=== PATIENT | female | born 1950 | race Caucasian/White ===

== ENCOUNTER 2018-02-22 13:48 | Outpatient (CLI) | payer MEDICARE, MEDICAID | END 2018-02-22 13:49 | disposition home or self-care (01) | LOC: BICMAMMO 13:48 | PROVIDERS: ATTEND Specialist | DX: Z12.31 Encounter for screening mammogram for malignant neoplasm of breast (principal); Z80.3 Family history of malignant neoplasm of breast | CPT/HCPCS: 77063; 77067 ==

== ENCOUNTER 2019-02-23 13:46 | Outpatient (CLI) | payer MEDICARE, MEDICAID ==
--- NOTE | 2019-02-23 15:24 | MMO ---
Bilateral MAMMO Bilat Screen [facility]. CLINICAL HISTORY: Patient is 68 years old and is seen for screening. The patient has no family history of breast cancer. The patient has no personal history of cancer. VIEWS: The views performed were: bilateral craniocaudal with tomosynthesis and bilateral mediolateral oblique with tomosynthesis. FILMS COMPARED: The present examination has been compared to prior imaging studies performed at [facility] on 02/03/2017 and 02/22/2018, and at [facility] on 01/17/2012, 08/31/2012 and 01/25/2013. MAMMOGRAM FINDINGS: There are scattered fibroglandular densities. There are stable benign appearing calcifications seen in both breasts. There are no suspicious masses, suspicious calcifications, or new areas of architectural distortion. IMPRESSION: THERE IS NO MAMMOGRAPHIC EVIDENCE OF MALIGNANCY. A ROUTINE FOLLOW-UP MAMMOGRAM IN 1 YEAR IS RECOMMENDED. THE RESULTS OF THIS EXAM WERE SENT TO THE PATIENT. ACR BI-RADS Category 2 - Benign finding MAMMOGRAPHY NOTE: 1. A negative mammogram report should not delay a biopsy if a dominant of clinically suspicious mass is present. 2. Approximately 10% to 15% of breast cancers are not detected by mammography. 3. Adenosis and dense breasts may obscure an underlying neoplasm.
== END 2019-02-23 13:47 | disposition home or self-care (01) ==
LOC: BICMAMMO 13:46
PROVIDERS: ATTEND Specialist
DX: Z12.31 Encounter for screening mammogram for malignant neoplasm of breast (principal)
CPT/HCPCS: 77063; 77067

== ENCOUNTER 2019-04-13 07:26 | Day surgery (SDC) | payer MEDICARE, MEDICAID ==
[2019-04-12 12:57] VITALS: BMI 47.9
[2019-04-13] MEDS ORDERED: PROPOFOL 200 MG/20 ML VIAL ONE (10:05)
[2019-04-13] MEDS ORDERED: Lidocaine 1% PF 5 ML VIAL ONE (10:05)
--- NOTE | 2019-04-13 12:36 | OP ---
DATE OF PROCEDURE: 04/13/2019 PROCEDURES PERFORMED: Colonoscopy with snare polypectomy and biopsy. PREOPERATIVE DIAGNOSIS: History of adenomatous colon polyps. DESCRIPTION OF PROCEDURE: Informed consent was obtained from the patient. She was sedated with total intravenous anesthesia. The rectal exam revealed external hemorrhoids/skin tags. These were left alone. The colonoscope was advanced to the cecum, where the ileocecal valve and appendiceal orifice were clearly identified. The preparation quality was excellent. The scope was passed with difficulty through the proximal, transverse, ascending, and cecum due to looping in the left side of the colon. Transverse pressure helped to advance the scope. Three polyps were removed from the cecum by cold biopsy forceps measuring 2 to 3 mm each. A 4-mm polyp was removed from the cecum by cold snare polypectomy. There was a 9-mm flat polyp on the ileocecal valve. The entire polyp was difficult to completely visualize as the polyp wrapped around to the proximal side of the valve opening. The polyp was removed with snare cautery polypectomy. The proximal edges of the polypectomy site were cauterized with argon plasma coagulation. A 10-mm elongated polyp was removed from the ascending colon by snare cautery polypectomy. A 6-mm polyp was removed by snare cautery polypectomy from the ascending colon. A 4-mm polyp was removed by cold snare polypectomy from the ascending colon. A 4-mm polyp was removed from the transverse colon by cold snare polypectomy. The remainder of the colonic mucosa was normal including retroflexed views in the rectum. IMPRESSION: 1. Three cecum polyps measuring 2-mm to 3-mm. These were removed by cold biopsy forceps. A 4-mm polyp was also removed from the cecum by cold snare polypectomy. 2. A 9- to 10-mm polyp was removed from the ileocecal valve. This was a flat polyp and removed by snare cautery polypectomy. The proximal margin was cauterized with argon plasma coagulation. 3. There were 3 polyps removed from the ascending colon. Two polyps measuring 6-mm and 10-mm were removed by hot snare. One measuring 4-mm was removed by cold snare. 4. A 4-mm polyp was removed from the transverse colon by cold snare polypectomy. 5. Otherwise normal colonoscopy with excellent prep. The procedure was difficult due to looping in the left colon, and advancement of the right colon was a challenge. RECOMMENDATIONS: 1. Await histopathology. 2. Repeat colonoscopy in 1 year to look at the polypectomy site at the ileocecal valve. If this is a hyperplastic polyp and the other polyps are adenomatous, then followup colonoscopy can be performed in 3 years instead. Job ID: [id number]
== END 2019-04-13 10:43 | disposition home or self-care (01) ==
LOC: SDC 07:26
PROVIDERS: ATTEND Internal Medicine Gastroenterology
PROC: 0DBK8ZX Excision of Ascending Colon, Via Natural or Artificial Opening Endoscopic, Diagnostic (ICD-10-PCS; principal; 2019-04-13)
PROC: 0DBL8ZX Excision of Transverse Colon, Via Natural or Artificial Opening Endoscopic, Diagnostic (ICD-10-PCS; 2019-04-13)
PROC: 0DBH8ZX Excision of Cecum, Via Natural or Artificial Opening Endoscopic, Diagnostic (ICD-10-PCS; 2019-04-13)
PROC: 0DBH8ZX Excision of Cecum, Via Natural or Artificial Opening Endoscopic, Diagnostic (ICD-10-PCS; 2019-04-13)
DX: D12.0 Benign neoplasm of cecum (principal); D12.2 Benign neoplasm of ascending colon; D12.3 Benign neoplasm of transverse colon; K63.5 Polyp of colon; M19.90 Unspecified osteoarthritis, unspecified site; I10 Essential (primary) hypertension; E78.00 Pure hypercholesterolemia, unspecified; K59.00 Constipation, unspecified; E66.01 Morbid (severe) obesity due to excess calories; Z68.42 Body mass index [BMI] 45.0-49.9, adult; Z86.010 Personal history of colon polyps; Z87.891 Personal history of nicotine dependence; Z79.82 Long term (current) use of aspirin; Z79.899 Other long term (current) drug therapy; Z88.2 Allergy status to sulfonamides
CPT/HCPCS: 88305; J2001; J2704

== ENCOUNTER 2020-02-27 10:39 | Outpatient (CLI) | payer MEDICARE, MEDICAID ==
--- NOTE | 2020-02-27 11:25 | MMO ---
Bilateral MAMMO Bilat Screen [facility]. CLINICAL HISTORY: Patient is 69 years old and is seen for screening. The patient has no family history of breast cancer. The patient has no personal history of cancer. VIEWS: The views performed were: bilateral craniocaudal with tomosynthesis and bilateral mediolateral oblique with tomosynthesis. FILMS COMPARED: The present examination has been compared to prior imaging studies performed at [facility] on 02/03/2017, 02/22/2018 and 02/23/2019, and at [facility] on 01/25/2013. This study has been interpreted with the assistance of computer-aided detection. MAMMOGRAM FINDINGS: The breasts are almost entirely fat. There are stable benign appearing calcifications seen in both breasts. There are no suspicious masses, suspicious calcifications, or new areas of architectural distortion. IMPRESSION: THERE IS NO MAMMOGRAPHIC EVIDENCE OF MALIGNANCY. A ROUTINE FOLLOW-UP MAMMOGRAM IN 1 YEAR IS RECOMMENDED. THE RESULTS OF THIS EXAM WERE SENT TO THE PATIENT. ACR BI-RADS Category 2 - Benign finding MAMMOGRAPHY NOTE: 1. A negative mammogram report should not delay a biopsy if a dominant of clinically suspicious mass is present. 2. Approximately 10% to 15% of breast cancers are not detected by mammography. 3. Adenosis and dense breasts may obscure an underlying neoplasm. Reported by: MANGO GRAY MD Electonically Signed: [id number]
== END 2020-02-27 10:40 | disposition home or self-care (01) ==
LOC: BICMAMMO 10:39
PROVIDERS: ATTEND Specialist
DX: Z12.31 Encounter for screening mammogram for malignant neoplasm of breast (principal)
CPT/HCPCS: 77063; 77067

== ENCOUNTER 2021-03-20 13:51 | Outpatient (CLI) | payer MEDICARE, MEDICAID | END 2021-03-20 13:52 | disposition home or self-care (01) | LOC: BICMAMMO 13:51 | PROVIDERS: ATTEND Specialist | DX: Z12.31 Encounter for screening mammogram for malignant neoplasm of breast (principal) | CPT/HCPCS: 77063; 77067 ==

== ENCOUNTER 2022-04-01 12:44 | Outpatient (CLI) | payer MEDICARE, MEDICAID | END 2022-04-01 12:45 | disposition home or self-care (01) | LOC: BICMAMMO 12:44 | PROVIDERS: ATTEND Specialist | DX: Z12.31 Encounter for screening mammogram for malignant neoplasm of breast (principal) | CPT/HCPCS: 77063; 77067 ==

== ENCOUNTER 2022-10-26 12:55 | Outpatient (CLI) | payer OTHER, MEDICAID | END 2022-10-26 12:56 | disposition home or self-care (01) | LOC: BICRAD 12:55 | PROVIDERS: ATTEND Specialist | DX: M54.9 Dorsalgia, unspecified (principal); M47.816 Spondylosis without myelopathy or radiculopathy, lumbar region | CPT/HCPCS: 72100 ==

== ENCOUNTER 2024-05-05 12:22 | Outpatient (CLI) | payer MEDICARE, MEDICAID | END 2024-05-05 12:23 | disposition home or self-care (01) | LOC: BICMAMMO 12:22 | PROVIDERS: ATTEND Specialist | DX: Z12.31 Encounter for screening mammogram for malignant neoplasm of breast (principal) | CPT/HCPCS: 77063; 77067 ==

== ENCOUNTER 2024-10-14 10:48 | Inpatient (IN) | payer MEDICARE, OTHER, MEDICAID ==
[2024-10-14] MEDS ORDERED: Morphine 4 MG/ML VIAL ONE (11:36)
[2024-10-14 12:13] LABS: #Basophils 0.03 10x3/uL (0.0-0.2); %Basophils 0.2 % (0.0-1.0); %Eosinophils 1.4 % (0.0-10.0); %Lymphocytes 28.3 % (21.0-51.0); %Monocytes 6.7 % (0.0-10.0); %Neutrophils 62.7 % (42.0-75.0); Hematocrit 41.1 % (36.0-47.0); Hemoglobin 13.9 g/dL (12.0-16.0); Mean Corpuscular HGB CONC 33.8 g/dL (32.0-36.0); Mean Corpuscular Hemoglobin 33.3 pg (27.0-31.0); Mean Corpuscular Volume 98.6 fL (78.0-98.0); Mean Platelet Volume 10.1 fL (7.4-10.4); Platelet Count 166 10x3/uL (130-400); RBC Distribution Width 12.7 % (11.5-14.5); Red Blood Cell (RBC) Count 4.17 mill/uL (4.20-5.40)
[2024-10-14 12:28] LABS: INR-International Normal Ratio 1.1; PTT 24.7 sec (22.9-36.1); Prothrombin Time 13.7 sec (12.0-14.7)
[2024-10-14 12:29] LABS: ALT (SGPT) 74 U/L (8-55); AST (SGOT) 72 U/L (5-34); Albumin 3.4 g/dL (3.4-4.8); Alkaline Phosphatase 50 U/L (40-110); Anion Gap 14 mmol/L (10-20); BUN (Urea Nitrogen) 17 mg/dL (9.8-20.1); Bilirubin, Total 0.7 mg/dL (0.2-1.2); Calc. Creatinine Clearance 0 mL/min (70-130); Calcium 8.9 mg/dL (7.8-10.44); Carbon Dioxide 24 mmol/L (23-31); Chloride 103 mmol/L (98-107); Estimated GFR 77; Globulin 2.9 g/dL (2.4-3.5); Glucose 97 mg/dL (83-110); Potassium 3.2 mmol/L (3.5-5.1); Protein, Total 6.3 g/dL (5.8-8.1); Sodium 138 mmol/L (136-145)
[2024-10-14] MEDS ORDERED: Glucagon 1 MG/ML KIT IM PRN (12:44)
[2024-10-14] MEDS ORDERED: Ondansetron PF 4 MG/2 ML Vial IVP PRN (12:44)
[2024-10-14] MEDS ORDERED: hydrALAZINE 20 MG/ML VIAL SLOW IVP PRN (12:44)
[2024-10-14] MEDS ORDERED: Dextrose 50% Abboject 50 ML SYRINGE SLOW IVP PRN (12:44)
[2024-10-14] MEDS ORDERED: Ondansetron ODT 4 MG TAB PO PRN (12:44)
[2024-10-14] MEDS ORDERED: Dextrose 5% in Water 1,000 ML IV PRN (12:44)
[2024-10-14] MEDS ORDERED: CEFAZOLIN 2 GM in Sodium Chloride 0.9% 100 ML IVPB SCH (13:15)
[2024-10-14] MEDS ORDERED: CEFAZOLIN 2 GM VIAL ONE (14:04)
[2024-10-14] MEDS ORDERED: fentaNYL 50 mcg/mL 1 mL Vial ONE ×3 (14:45→18:02)
[2024-10-14] MEDS ORDERED: PROPOFOL 20 ML ONE (14:51)
[2024-10-14] MEDS ORDERED: Lidocaine 1% PF 5 ML VIAL ONE (14:51)
[2024-10-14] MEDS ORDERED: Ondansetron PF 4 MG/2 ML Vial ONE (14:51)
[2024-10-14] MEDS ORDERED: ePHEDrine Sulfate 50 MG/10 ML VIAL ONE (15:21)
[2024-10-14] MEDS ORDERED: HYDROmorphone 0.5 MG/0.5 ML SYRINGE ONE ×2 (17:50→18:03)
[2024-10-14 21:16] VITALS: BMI 43.7
[2024-10-14] MEDS: TETANUS, DIPHTHERIA TOX,ADULT (TDVAX) 0.5 ML VIAL IM ONE (22:28)
[2024-10-15] MEDS: Acetaminophen 325 MG TAB PO PRN (01:21)
[2024-10-15] MEDS: CEFAZOLIN 2 GM in Sodium Chloride 0.9% 100 ML IVPB SCH (01:21)
[2024-10-15 04:44] LABS: #Basophils 0.03 10x3/uL (0.0-0.2); %Basophils 0.3 % (0.0-1.0); %Eosinophils 2.4 % (0.0-10.0); %Lymphocytes 16.2 % (21.0-51.0); %Monocytes 8.1 % (0.0-10.0); %Neutrophils 72.2 % (42.0-75.0); Hematocrit 34.1 % (36.0-47.0); Hemoglobin 11.4 g/dL (12.0-16.0); Mean Corpuscular HGB CONC 33.4 g/dL (32.0-36.0); Mean Corpuscular Hemoglobin 33.1 pg (27.0-31.0); Mean Corpuscular Volume 99.1 fL (78.0-98.0); Mean Platelet Volume 10.3 fL (7.4-10.4); Platelet Count 165 10x3/uL (130-400); Red Blood Cell (RBC) Count 3.44 mill/uL (4.20-5.40)
[2024-10-15] MEDS: Sodium Chloride 0.9% 1,000 ML IV SCH (05:58)
[2024-10-15 06:23] LABS: Anion Gap 12 mmol/L (10-20); BUN (Urea Nitrogen) 20 mg/dL (9.8-20.1); Calc. Creatinine Clearance 95 mL/min (70-130); Carbon Dioxide 26 mmol/L (23-31); Chloride 104 mmol/L (98-107); Estimated GFR 65; Glucose 124 mg/dL (83-110); Sodium 138 mmol/L (136-145)
[2024-10-15] MEDS: Senokot S 8.6-50 MG TAB PO SCH (08:01)
[2024-10-15] MEDS: CeleCOXIB 100 MG CAP PO SCH (08:19)
[2024-10-15] MEDS: Aspirin 81 mg Enteric Coated Tablet PO SCH (08:19)
[2024-10-15] MEDS: Allopurinol 300 MG TAB PO SCH (08:19)
[2024-10-15] MEDS ORDERED: Non-Formulary Item 1 EACH (Olmesartan/Hydrochlorothiazide [Olmesartan-Hctz 20-12.5 Mg Tab PO SCH (09:00)
[2024-10-15] MEDS ORDERED: Furosemide 40 MG TAB PO SCH (09:00)
[2024-10-15] MEDS ORDERED: Non-Formulary Item 1 EACH (Celecoxib [Celebrex] 200 MG Capsule) PO SCH (09:00)
[2024-10-15] MEDS: Hydrochlorothiazide 25 MG TAB PO SCH (09:08)
[2024-10-15] MEDS: Furosemide 40 MG TAB PO SCH (09:08)
[2024-10-15] MEDS: Losartan 25 MG TAB PO SCH (09:08)
[2024-10-15] MEDS: HYDROcodone/Acetaminophen 5/325 mg Tablet PO PRN (12:40)
[2024-10-15] MEDS: Rosuvastatin 20 MG TAB PO SCH (20:29)
[2024-10-15] MEDS ORDERED: Rosuvastatin 20 MG TAB PO SCH (21:00)
[2024-10-16] MEDS ORDERED: Linaclotide [Linzess] 145 MCG Capsule PO SCH (07:30)
[2024-10-16] MEDS ORDERED: Non-Formulary Item 1 EACH (Linaclotide [Linzess] 145 MCG Capsule) PO SCH (07:30)
[2024-10-16] MEDS: Enoxaparin 40 MG (0.4 mL) SYRINGE SC SCH (21:49)
[2024-10-16] MEDS: Methocarbamol 500 MG TAB PO PRN (22:55)
[2024-10-17] MEDS: traMADol HCl 50 MG TAB PO PRN (06:16)
[2024-10-17] MEDS ORDERED: Lactated Ringer's 1,000 ML IV SCH (09:30)
[2024-10-17] MEDS: CeleCOXIB 100 MG CAP PO SCH (09:47)
[2024-10-17] MEDS: Losartan 25 MG TAB PO SCH (09:54)
[2024-10-17 10:17] LABS: Hematocrit 23.5 % (36.0-47.0); Hemoglobin 7.9 g/dL (12.0-16.0)
[2024-10-17] MEDS: Ketorolac Tromethamine 30 MG (1 mL) VIAL IVP SCH ×2 (11:03→16:09)
[2024-10-17] MEDS: Acetaminophen 500 MG TAB PO SCH (13:00)
[2024-10-17] MEDS: traMADol HCl 50 MG TAB PO SCH (13:01)
[2024-10-17] MEDS: Lactulose 20 GM (30 mL) UDCUP PO SCH (16:08)
[2024-10-17 16:54] LABS: Hematocrit 21.8 % (36.0-47.0); Hemoglobin 7.4 g/dL (12.0-16.0)
[2024-10-17] MEDS: Ferrous Sulfate 325 MG TAB PO SCH (18:06)
[2024-10-17] MEDS: Senokot S 8.6-50 MG TAB PO SCH (20:08)
[2024-10-17] MEDS: ACYCLOVIR 400 MG TABLET PO SCH (20:09)
[2024-10-17] MEDS: Ascorbic Acid 500 mg Chewable Tablet PO SCH (20:09)
[2024-10-18 06:35] LABS: Hematocrit 25.3 % (36.0-47.0); Hemoglobin 8.5 g/dL (12.0-16.0)
[2024-10-18] MEDS ORDERED: HYDROcodone/Acetaminophen 5/325 mg Tablet PO PRN (08:50)
[2024-10-18] MEDS ORDERED: Ibuprofen 600 MG TAB PO PRN (08:50)
[2024-10-18] MEDS ORDERED: ALPRAZolam 0.5 MG TAB PO SCH (09:00)
[2024-10-18] MEDS: Losartan 25 MG TAB PO SCH (09:40)
[2024-10-18] MEDS: Polyethylene Glycol 3350 17 GM Packet PO SCH (09:42)
[2024-10-18] MEDS: Docusate 100 MG CAP PO SCH (11:26)
[2024-10-18] MEDS: Acetaminophen 500 MG TAB PO SCH (11:26)
[2024-10-18] MEDS: traMADol HCl 50 MG TAB PO PRN (13:13)
[2024-10-18] MEDS: Loratadine 10 MG TAB PO SCH (17:46)
[2024-10-18] MEDS: Acyclovir 200 mg Capsule PO SCH (19:22)
[2024-10-18] MEDS: Enoxaparin 40 MG (0.4 mL) SYRINGE SC SCH (21:23)
[2024-10-19] MEDS: BENZOCAINE/MENTHOL/ZINC CHLOR 5.1 GM TUBE TOP PRN (06:30)
[2024-10-19 12:46] VITALS: BP 147/76; TEMP 98.5
[2024-10-20] MEDS ORDERED: Fluconazole 100 MG TAB PO SCH (09:00)
== END 2024-10-19 16:00 | DRG 482 ==
LOC: ERS 10:48 → SDC 13:30 → SURG B 17:36
PROVIDERS: ADMIT Orthopaedic Surgery; ATTEND Orthopaedic Surgery
PROC: 0QSC36Z Reposition Left Lower Femur with Intramedullary Internal Fixation Device, Percutaneous Approach (ICD-10-PCS; principal; 2024-10-14)
DX: S72.332A Displaced oblique fracture of shaft of left femur, initial encounter for closed fracture (principal); E03.9 Hypothyroidism, unspecified; M19.90 Unspecified osteoarthritis, unspecified site; F41.9 Anxiety disorder, unspecified; I10 Essential (primary) hypertension; E78.5 Hyperlipidemia, unspecified; W19.XXXA Unspecified fall, initial encounter; M17.0 Bilateral primary osteoarthritis of knee; D64.9 Anemia, unspecified; Z90.710 Acquired absence of both cervix and uterus; Z87.891 Personal history of nicotine dependence; Z79.82 Long term (current) use of aspirin; Z79.899 Other long term (current) drug therapy; Z88.2 Allergy status to sulfonamides; Z91.040 Latex allergy status; Z90.49 Acquired absence of other specified parts of digestive tract
CPT/HCPCS: 36415; 36430; 71045; 80048; 80053; 85014; 85018; 85025; 85610; 85730; 86850; 86900; 86901; 93005; 96374; 99285; C1713; C1889; G0390; J1171; J1650; J1885; J2272; J2405; J2704; J3010; J7030; P9016

== ENCOUNTER 2024-12-04 11:50 | Inpatient (IN) | payer OTHER, MEDICAID ==
[~2024-12-04 11:50] MED LIST: Iopamidol-370 76% 500 ML MDV (1 ML CHARGE) ONE
[2024-12-04] MEDS ORDERED: cefTRIAXone (ROCEPHIN) 2 GM VIAL ONE (12:14)
[2024-12-04] MEDS ORDERED: Azithromycin 500 MG VIAL ONE (12:15)
[2024-12-04] MEDS ORDERED: Sodium Chloride 0.9% 100 ML ONE (12:15)
[2024-12-04 12:29] LABS: Actual Bicarbonate (HCO3v) 27.8 mEq/L (22-28); Analyzer IN Cardio ER; Base Excess 4.9 mEq/L (-2.0 to +3.0); Calcium, Ionized (venous) 1.13 mmol/L (1.16-1.32); Chloride (VBG) 98 mmol/L (98-106); Hematocrit-VBG 43 % (36.0-47.0); Hemoglobin (Hb) 14.6 g/dL (11.7-16.1); Potassium (VBG) 3.29 mmol/L (3.70-5.30); Sodium 139 mmol/L (133-146); pH (venous) 7.511 (7.32-7.43)
[2024-12-04 12:45] LABS: #Basophils Less than 0.03 10x3/uL (0.0-0.2); #Eosinophils Less than 0.03 10x3/uL (0.0-0.7); %Basophils 0.2 % (0.0-1.0); %Lymphocytes 9.3 % (21.0-51.0); %Neutrophils 78.2 % (42.0-75.0); Hematocrit 40.6 % (36.0-47.0); Hemoglobin 13.5 g/dL (12.0-16.0); Mean Corpuscular HGB CONC 33.3 g/dL (32.0-36.0); Mean Corpuscular Hemoglobin 33.4 pg (27.0-31.0); Mean Corpuscular Volume 100.5 fL (78.0-98.0); Mean Platelet Volume 10.1 fL (7.4-10.4); Platelet Count 213 10x3/uL (130-400); RBC Distribution Width 14.4 % (11.5-14.5); Red Blood Cell (RBC) Count 4.04 mill/uL (4.20-5.40)
[2024-12-04 12:52] LABS: Bacteria/HPF None Seen HPF (None Seen); Bilirubin Negative (Negative); Blood, Urine Negative (Negative); CAUTI Indications for Culture Fever or rigors; Clarity Extra Turbid (Clear); Glucose, Urine (Dipstick) Normal (Negative); Ketone, Urine Negative (Negative); Leukocyte Negative Leu/uL (Negative); Nitrite Negative (Negative); Protein, Urine (Dipstick) Negative (Neg-Trace); RBC/HPF 0-3 HPF (0-3); Specific Gravity, Urine 1.014 (1.002-1.036); Squamous Epithelial 0-3 HPF (0-3); Urobilinogen Normal mg/dL (Less than 2)
[2024-12-04 12:55] LABS: Urine Culture Reflex No No
[2024-12-04 13:03] LABS: INR-International Normal Ratio 1.2
[2024-12-04 13:04] LABS: PTT 34.4 sec (22.9-36.1)
[2024-12-04 13:05] LABS: ALT (SGPT) Less than 7 U/L (Less than 34); AST (SGOT) 18 U/L (11-34); Albumin 2.8 g/dL (3.1-4.5); Alkaline Phosphatase 88 U/L (40-110); Anion Gap 14 mmol/L (10-20); BUN (Urea Nitrogen) 12 mg/dL (9.8-20.1); Bilirubin, Total 0.7 mg/dL (0.3-1.2); Calc. Creatinine Clearance 0 mL/min (70-130); Calcium 9.5 mg/dL (7.8-10.44); Carbon Dioxide 26 mmol/L (23-31); Chloride 100 mmol/L (98-107); Estimated GFR 90; Globulin 4.2 g/dL (2.4-3.5); Glucose 171 mg/dL (83-110); Magnesium 1.7 mg/dL (1.6-2.6); Potassium 3.3 mmol/L (3.5-5.1); Sodium 137 mmol/L (136-145)
[2024-12-04 13:45] LABS: Troponin I 0.089 ng/mL (< 0.028)
[2024-12-04] MEDS ORDERED: Aspirin Chewable 81 MG TAB ONE (14:05)
[2024-12-04] MEDS ORDERED: Potassium Chloride 20 MEQ TAB ONE (14:05)
[2024-12-04] MEDS ORDERED: Morphine 2 MG/ML VIAL ONE (15:20)
[2024-12-04 20:49] LABS: Troponin I 0.056 ng/mL (< 0.028)
[2024-12-04 21:30] VITALS: BMI 42.5
[2024-12-04] MEDS: Sodium Chloride 0.9% 1,000 ML IV SCH (21:46)
[2024-12-04] MEDS: Ascorbic Acid 500 mg Chewable Tablet PO SCH (22:03)
[2024-12-04] MEDS ORDERED: Insulin Lispro 100 UNIT/ML 10 ML VIAL SC PRN (22:17)
[2024-12-04] MEDS ORDERED: Dextrose 50% Abboject 50 ML SYRINGE SLOW IVP PRN (22:17)
[2024-12-04] MEDS ORDERED: Dextrose 5% in Water 1,000 ML IV PRN (22:17)
[2024-12-04] MEDS ORDERED: Glucagon 1 MG/ML KIT IM PRN (22:17)
[2024-12-04] MEDS ORDERED: Ondansetron ODT 4 MG TAB PO PRN (22:17)
[2024-12-04 22:50] LABS: #Basophils 0.04 10x3/uL (0.0-0.2); %Basophils 0.3 % (0.0-1.0); %Eosinophils 0.2 % (0.0-10.0); %Lymphocytes 6.2 % (21.0-51.0); %Monocytes 13.9 % (0.0-10.0); Hematocrit 37.1 % (36.0-47.0); Hemoglobin 12.2 g/dL (12.0-16.0); Mean Corpuscular HGB CONC 32.9 g/dL (32.0-36.0); Mean Corpuscular Hemoglobin 33.6 pg (27.0-31.0); Mean Corpuscular Volume 102.2 fL (78.0-98.0); Mean Platelet Volume 9.6 fL (7.4-10.4); Platelet Count 165 10x3/uL (130-400); RBC Distribution Width 14.6 % (11.5-14.5); Red Blood Cell (RBC) Count 3.63 mill/uL (4.20-5.40)
[2024-12-04 23:00] LABS: Hemoglobin A1c 4.9 % (4.0-6.0)
[2024-12-04 23:04] LABS: Phosphorus 3.2 mg/dL (2.5-4.5)
[2024-12-04 23:06] LABS: Anion Gap 15 mmol/L (10-20); BUN (Urea Nitrogen) 11 mg/dL (9.8-20.1); Calc. Creatinine Clearance 117 mL/min (70-130); Calcium 9.6 mg/dL (7.8-10.44); Carbon Dioxide 25 mmol/L (23-31); Cardiac Risk 2.1 (Less than 4.5); Chloride 101 mmol/L (98-107); Cholesterol 79 mg/dl (< 200 Desired); Estimated GFR 90; Glucose 157 mg/dL (83-110); HDL Cholesterol 37 mg/dL (>60 Neg Risk); LDL Cholesterol, Calculated 30 mg/dL; Magnesium 1.5 mg/dL (1.6-2.6); Potassium 3.5 mmol/L (3.5-5.1); Sodium 137 mmol/L (136-145); Triglycerides 61 mg/dL (Less than 150)
[2024-12-04 23:10] LABS: Troponin I 0.055 ng/mL (< 0.028)
[2024-12-04] MEDS: Atorvastatin Calcium 40 MG TAB PO SCH (23:40)
[2024-12-04] MEDS: Acetaminophen 325 MG TAB PO SCH (23:40)
[2024-12-05 04:47] LABS: Cardiac Risk 2.2 (Less than 4.5)
[2024-12-05 05:01] LABS: Troponin I 0.059 ng/mL (< 0.028)
[2024-12-05] MEDS ORDERED: Electrolyte Replacement Protocol 1 EACH FS SCH (07:59)
[2024-12-05] MEDS ORDERED: PILOCARPINE HCL FS SCH (09:00)
[2024-12-05 09:37] VITALS: BMI 42.5
[2024-12-05] MEDS: Potassium Chloride 20 MEQ TAB PO SCH (09:54)
[2024-12-05] MEDS: cefTRIAXone\\ROCEPHIN 1 GM in Sodium Chloride 0.9% 100 ML IVPB SCH (09:54)
[2024-12-05] MEDS: Magnesium 2 GM/50 ML(in water) 2 GM in Premix 1 BAG IVPB SCH (11:21)
[2024-12-05] MEDS: Vancomycin (BATCH) 2.5 GM in Premix 1 BAG IVPB SCH (14:22)
[2024-12-05] MEDS ORDERED: Vancomycin 1 GM in Premix 1 BAG IVPB SCH (21:00)
[2024-12-05] MEDS: Bisacodyl 10 MG SUPP PR SCH (21:52)
[2024-12-05] MEDS: Atorvastatin Calcium 40 MG TAB PO SCH (21:52)
[2024-12-05] MEDS: Senokot S 8.6-50 MG TAB PO SCH (21:53)
[2024-12-06] MEDS: Vancomycin 1 GM in Premix 1 BAG IVPB SCH (02:05)
[2024-12-06 04:16] LABS: #Basophils 0.03 10x3/uL (0.0-0.2); #Eosinophils Less than 0.03 10x3/uL (0.0-0.7); %Basophils 0.2 % (0.0-1.0); %Eosinophils 0.2 % (0.0-10.0); %Lymphocytes 9.4 % (21.0-51.0); %Monocytes 10.8 % (0.0-10.0); %Neutrophils 78.9 % (42.0-75.0); Hematocrit 36.5 % (36.0-47.0); Hemoglobin 11.7 g/dL (12.0-16.0); Mean Corpuscular HGB CONC 32.1 g/dL (32.0-36.0); Mean Corpuscular Hemoglobin 33.1 pg (27.0-31.0); Mean Corpuscular Volume 103.4 fL (78.0-98.0); Mean Platelet Volume 9.9 fL (7.4-10.4); Platelet Count 161 10x3/uL (130-400); RBC Distribution Width 14.6 % (11.5-14.5); Red Blood Cell (RBC) Count 3.53 mill/uL (4.20-5.40)
[2024-12-06 04:36] LABS: Anion Gap 13 mmol/L (10-20); BUN (Urea Nitrogen) 16 mg/dL (9.8-20.1); Calc. Creatinine Clearance 121 mL/min (70-130); Calcium 9.4 mg/dL (7.8-10.44); Carbon Dioxide 27 mmol/L (23-31); Chloride 104 mmol/L (98-107); Estimated GFR 91; Glucose 144 mg/dL (83-110); Magnesium 2.1 mg/dL (1.6-2.6); Potassium 3.6 mmol/L (3.5-5.1); Sodium 140 mmol/L (136-145); Vancomycin, Random 32.7 ug/mL (See Comment)
[2024-12-06 04:49] LABS: CRP,High Sensitivity (Inhouse) 29.94 mg/dL (< or = 0.5)
[2024-12-06 07:52] LABS: HBsAg Index 0.39 S/CO (0-0.99); HIV (1/2) Antibody/Antigen NONREACTIVE (NonReactive); HIV 1/2 INDEX 0.07 S/CO (<1.00); Hep B Surf Ag NONREACTIVE S/CO (NonReactive); Hep C IgG Ab NONREACTIVE S/CO (NonReactive)
[2024-12-06] MEDS: Polyethylene Glycol 3350 17 GM Packet PO SCH (08:51)
[2024-12-06] MEDS: Enoxaparin 40 MG (0.4 mL) SYRINGE SC SCH (08:55)
[2024-12-06] MEDS: Nystatin 500,000 UNITS/5 ML UDCUP SSW SCH (12:26)
[2024-12-06] MEDS: Aspirin 81 mg Enteric Coated Tablet PO SCH (12:26)
[2024-12-06] MEDS: Artificial Tear Ophth Sol 15 ML BOT EA EYE SCH (12:27)
[2024-12-06] MEDS: Ciprofloxacin 0.3% Ophth Soln 2.5 ml Bottle L EYE SCH (12:27)
[2024-12-06] MEDS: Acetaminophen 325 MG TAB PO PRN (12:29)
[2024-12-06] MEDS: Amlodipine 5 MG TAB PO SCH (20:50)
[2024-12-07] MEDS: Vancomycin (BATCH) 1.75 GM in Premix 1 BAG IVPB SCH (00:04)
[2024-12-07 04:31] LABS: #Basophils 0.03 10x3/uL (0.0-0.2); %Basophils 0.3 % (0.0-1.0); %Eosinophils 1.3 % (0.0-10.0); %Lymphocytes 14.3 % (21.0-51.0); %Monocytes 8.5 % (0.0-10.0); %Neutrophils 75.2 % (42.0-75.0); Hematocrit 35.2 % (36.0-47.0); Hemoglobin 11.2 g/dL (12.0-16.0); Mean Corpuscular HGB CONC 31.8 g/dL (32.0-36.0); Mean Corpuscular Hemoglobin 32.8 pg (27.0-31.0); Mean Corpuscular Volume 103.2 fL (78.0-98.0); Platelet Count 156 10x3/uL (130-400); RBC Distribution Width 14.6 % (11.5-14.5); Red Blood Cell (RBC) Count 3.41 mill/uL (4.20-5.40)
[2024-12-07 04:45] LABS: Anion Gap 14 mmol/L (10-20); BUN (Urea Nitrogen) 19 mg/dL (9.8-20.1); Calc. Creatinine Clearance 126 mL/min (70-130); Carbon Dioxide 24 mmol/L (23-31); Chloride 108 mmol/L (98-107); Estimated GFR 92; Glucose 115 mg/dL (83-110); Potassium 3.8 mmol/L (3.5-5.1); Sodium 142 mmol/L (136-145)
[2024-12-07 04:46] LABS: Vancomycin, Random 36.5 ug/mL (See Comment)
[2024-12-07] MEDS: Aspirin 81 mg Enteric Coated Tablet PO SCH (08:53)
[2024-12-07] MEDS: Clopidogrel Bisulfate 75 MG TAB PO SCH (15:55)
[2024-12-07] MEDS: Acyclovir 400 mg Tablet PO SCH (20:57)
[2024-12-07] MEDS: Nystatin Powder 15 GM BOT TOP SCH (20:58)
[2024-12-08 04:05] LABS: #Basophils 0.04 10x3/uL (0.0-0.2); %Basophils 0.4 % (0.0-1.0); %Eosinophils 2.5 % (0.0-10.0); %Lymphocytes 17.4 % (21.0-51.0); %Monocytes 12.7 % (0.0-10.0); %Neutrophils 66.3 % (42.0-75.0); Hematocrit 36.5 % (36.0-47.0); Hemoglobin 11.7 g/dL (12.0-16.0); Mean Corpuscular HGB CONC 32.1 g/dL (32.0-36.0); Mean Corpuscular Hemoglobin 32.7 pg (27.0-31.0); Mean Platelet Volume 10.2 fL (7.4-10.4); Platelet Count 178 10x3/uL (130-400); RBC Distribution Width 14.5 % (11.5-14.5); Red Blood Cell (RBC) Count 3.58 mill/uL (4.20-5.40)
[2024-12-08 04:29] LABS: Anion Gap 14 mmol/L (10-20); BUN (Urea Nitrogen) 16 mg/dL (9.8-20.1); Calc. Creatinine Clearance 133 mL/min (70-130); Calcium 8.8 mg/dL (7.8-10.44); Carbon Dioxide 25 mmol/L (23-31); Chloride 108 mmol/L (98-107); Estimated GFR 93; Glucose 106 mg/dL (83-110); Potassium 3.6 mmol/L (3.5-5.1); Sodium 143 mmol/L (136-145)
[2024-12-08] MEDS: Levothyroxine Sodium 50 MCG TAB PO SCH (05:59)
[2024-12-08] MEDS: ALPRAZolam 0.25 MG TAB PO SCH (09:35)
[2024-12-08] MEDS: Allopurinol 300 MG TAB PO SCH (09:36)
[2024-12-08] MEDS: Clopidogrel Bisulfate 75 MG TAB PO SCH (09:36)
[2024-12-08] MEDS: Heparin 5,000 UNITS/ML VIAL SC SCH (09:47)
[2024-12-08] MEDS: Polyethylene Glycol 3350 17 GM Packet PO SCH (21:14)
[2024-12-09] MEDS: Cyclobenzaprine 10 MG TAB PO SCH (00:07)
[2024-12-09 04:18] LABS: Vancomycin, Random 10.5 ug/mL (See Comment)
[2024-12-09] MEDS ORDERED: Iopamidol-370 76% 500 ML MDV (1 ML CHARGE) ONE (12:03)
[2024-12-09] MEDS ORDERED: Polyethylene Glycol 3350 17 GM Packet PO PRN (12:10)
[2024-12-09] MEDS: Lactated Ringer's 1,000 ML IV SCH (13:25)
[2024-12-09] MEDS: Vancomycin (BATCH) 1.75 GM in Premix 1 BAG IVPB SCH (13:49)
[2024-12-10 04:01] LABS: #Basophils 0.04 10x3/uL (0.0-0.2); %Basophils 0.4 % (0.0-1.0); %Eosinophils 2.1 % (0.0-10.0); %Lymphocytes 14.7 % (21.0-51.0); %Neutrophils 73.6 % (42.0-75.0); Hematocrit 37.1 % (36.0-47.0); Hemoglobin 12.3 g/dL (12.0-16.0); Mean Corpuscular HGB CONC 33.2 g/dL (32.0-36.0); Mean Corpuscular Hemoglobin 32.7 pg (27.0-31.0); Mean Corpuscular Volume 98.7 fL (78.0-98.0); Mean Platelet Volume 9.9 fL (7.4-10.4); Platelet Count 203 10x3/uL (130-400); RBC Distribution Width 14.1 % (11.5-14.5); Red Blood Cell (RBC) Count 3.76 mill/uL (4.20-5.40)
[2024-12-10 04:10] LABS: Anion Gap 13 mmol/L (10-20); BUN (Urea Nitrogen) 9 mg/dL (9.8-20.1); Calc. Creatinine Clearance 145 mL/min (70-130); Calcium 8.9 mg/dL (7.8-10.44); Carbon Dioxide 25 mmol/L (23-31); Chloride 103 mmol/L (98-107); Estimated GFR 95; Glucose 100 mg/dL (83-110); Magnesium 2.1 mg/dL (1.6-2.6); Potassium 3.4 mmol/L (3.5-5.1); Sodium 138 mmol/L (136-145)
[2024-12-10] MEDS: Potassium Chloride 20 MEQ TAB PO SCH (08:39)
[2024-12-10] MEDS: Ondansetron PF 4 MG/2 ML Vial IVP PRN (15:53)
[2024-12-11 04:57] LABS: #Basophils 0.04 10x3/uL (0.0-0.2); %Basophils 0.4 % (0.0-1.0); %Eosinophils 2.7 % (0.0-10.0); %Lymphocytes 14.8 % (21.0-51.0); %Monocytes 9.7 % (0.0-10.0); %Neutrophils 71.2 % (42.0-75.0); Hematocrit 40.6 % (36.0-47.0); Mean Corpuscular Hemoglobin 32.8 pg (27.0-31.0); Mean Corpuscular Volume 102.5 fL (78.0-98.0); Mean Platelet Volume 9.8 fL (7.4-10.4); Platelet Count 211 10x3/uL (130-400); RBC Distribution Width 14.2 % (11.5-14.5); Red Blood Cell (RBC) Count 3.96 mill/uL (4.20-5.40)
[2024-12-11 05:14] LABS: Anion Gap 13 mmol/L (10-20); BUN (Urea Nitrogen) 9 mg/dL (9.8-20.1); Calc. Creatinine Clearance 142 mL/min (70-130); Carbon Dioxide 26 mmol/L (23-31); Chloride 104 mmol/L (98-107); Estimated GFR 95; Glucose 115 mg/dL (83-110); Potassium 3.8 mmol/L (3.5-5.1); Sodium 139 mmol/L (136-145)
[2024-12-11] MEDS ORDERED: Sodium Bicarbonate 2.5 MEQ/5 ML SDV ONE (12:52)
[2024-12-11] MEDS ORDERED: Lidocaine 1% PF 5 ML VIAL ONE (12:52)
[2024-12-11] MEDS ORDERED: DAPTOmycin 500 MG in Sodium Chloride 0.9% 50 ML IVPB SCH (13:00)
[2024-12-11] MEDS: DAPTOmycin 800 MG in Sodium Chloride 0.9% 50 ML IVPB SCH (15:21)
[2024-12-12] MEDS: Losartan 25 MG TAB PO SCH (10:45)
[2024-12-12 17:17] VITALS: BP 159/81; TEMP 98.8
[2024-12-13] MEDS ORDERED: Losartan 25 MG TAB PO SCH (09:00)
== END 2024-12-12 20:34 | DRG 64 ==
LOC: ERS 11:50 → 2SE 18:12
PROVIDERS: ADMIT Internal Medicine; ATTEND Internal Medicine
PROC: 4A00X4Z Measurement of Central Nervous Electrical Activity, External Approach (ICD-10-PCS; principal; 2024-12-05)
PROC: 02HV33Z Insertion of Infusion Device into Superior Vena Cava, Percutaneous Approach (ICD-10-PCS; 2024-12-11)
PROC: B5181ZA Fluoroscopy of Superior Vena Cava using Low Osmolar Contrast, Guidance (ICD-10-PCS; 2024-12-11)
DX: I63.9 Cerebral infarction, unspecified (principal); A41.9 Sepsis, unspecified organism; G93.41 Metabolic encephalopathy; R65.20 Severe sepsis without septic shock; E87.3 Alkalosis; N39.0 Urinary tract infection, site not specified; B37.0 Candidal stomatitis; E87.6 Hypokalemia; E03.9 Hypothyroidism, unspecified; I10 Essential (primary) hypertension; M19.90 Unspecified osteoarthritis, unspecified site; E83.42 Hypomagnesemia; K59.00 Constipation, unspecified; H01.006 Unspecified blepharitis left eye, unspecified eyelid; F41.9 Anxiety disorder, unspecified; Z91.040 Latex allergy status; Z88.2 Allergy status to sulfonamides; Z90.710 Acquired absence of both cervix and uterus; Z98.51 Tubal ligation status; Z98.890 Other specified postprocedural states; Z79.82 Long term (current) use of aspirin; Z79.899 Other long term (current) drug therapy
CPT/HCPCS: 36415; 36416; 36572; 51702; 70450; 70491; 70551; 71045; 71250; 74177; 80048; 80053; 80061; 80202; 81001; 82805; 83036; 83605; 83735; 84100; 84443; 84484; 85025; 85610; 85730; 86141; 86803; 87040; 87077; 87149; 87186; 87340; 87389; 87428; 93005; 93306; 93880; 93970; 94760; 95700; 95711; 95957; 96365; 96367; 96375; C1751; J0456; J0696; J0878; J1644; J1650; J2272; J2405; J3370; J3475; J7120; Q9967

== ENCOUNTER 2025-02-03 10:18 | Inpatient (IN) | payer OTHER, MEDICAID ==
[2025-02-03] MEDS ORDERED: Iopamidol-370 76% 500 ML MDV (1 ML CHARGE) ONE (10:37)
[2025-02-03 10:58] LABS: #Basophils Less than 0.03 10x3/uL (0.0-0.2); %Basophils 0.2 % (0.0-1.0); %Eosinophils 3.7 % (0.0-10.0); %Lymphocytes 47.1 % (21.0-51.0); %Monocytes 9.3 % (0.0-10.0); %Neutrophils 39.5 % (42.0-75.0); Hematocrit 35.6 % (36.0-47.0); Hemoglobin 11.5 g/dL (12.0-16.0); Mean Corpuscular HGB CONC 32.3 g/dL (32.0-36.0); Mean Corpuscular Hemoglobin 31.7 pg (27.0-31.0); Mean Corpuscular Volume 98.1 fL (78.0-98.0); Mean Platelet Volume 9.4 fL (7.4-10.4); Platelet Count 204 10x3/uL (130-400); RBC Distribution Width 16.8 % (11.5-14.5); Red Blood Cell (RBC) Count 3.63 mill/uL (4.20-5.40)
[2025-02-03 11:12] LABS: ALT (SGPT) 14 U/L (Less than 34); AST (SGOT) 30 U/L (11-34); Albumin 2.4 g/dL (3.1-4.5); Alkaline Phosphatase 84 U/L (40-110); Anion Gap 14 mmol/L (10-20); BUN (Urea Nitrogen) 8 mg/dL (9.8-20.1); Bilirubin, Total 0.4 mg/dL (0.3-1.2); Calc. Creatinine Clearance 0 mL/min (70-130); Carbon Dioxide 26 mmol/L (23-31); Chloride 104 mmol/L (98-107); Estimated GFR 93; Glucose 94 mg/dL (83-110); Lipase 11 U/L (8-78); Magnesium 1.6 mg/dL (1.6-2.6); Potassium 3.5 mmol/L (3.5-5.1); Protein, Total 6.4 g/dL (5.8-8.1); Sodium 140 mmol/L (136-145)
[2025-02-03 13:12] LABS: Bilirubin Negative (Negative); Blood, Urine Negative (Negative); CAUTI Indications for Culture Fever or rigors; Clarity Clear (Clear); Glucose, Urine (Dipstick) Normal (Negative); Ketone, Urine Negative (Negative); Leukocyte 500 Leu/uL (Negative); Nitrite 2+ (Negative); Protein, Urine (Dipstick) Negative (Neg-Trace); RBC/HPF 0-3 HPF (0-3); Specific Gravity, Urine 1.035 (1.002-1.036); Squamous Epithelial None Seen HPF (0-3); Urobilinogen Normal mg/dL (Less than 2); WBC/HPF Greater than 50 HPF (0-3)
[2025-02-03 13:17] LABS: Bacteria/HPF 1+ HPF (None Seen)
[2025-02-03 13:19] LABS: Urine Culture Reflex Yes Yes
[2025-02-03] MEDS ORDERED: Sodium Chloride 0.9% 100 ML ONE (13:46)
[2025-02-03] MEDS ORDERED: cefTRIAXone (ROCEPHIN) 1 GM VIAL ONE (13:46)
[2025-02-03] MEDS ORDERED: Enoxaparin 100 MG (1 mL) SYRINGE ONE (14:04)
[2025-02-03 14:38] LABS: Troponin I Less than 0.010 ng/mL (< 0.028)
[2025-02-03] MEDS ORDERED: Ondansetron ODT 4 MG TAB PO PRN (14:42)
[2025-02-03] MEDS ORDERED: Communication Order-Pharmacy FS PRN (14:42)
[2025-02-03] MEDS ORDERED: Acetaminophen 325 MG TAB PO PRN (14:42)
[2025-02-03] MEDS ORDERED: Electrolyte Replacement Protocol 1 EACH FS SCH (14:45)
[2025-02-03] MEDS ORDERED: Electrolyte Replacement Protocol FS PRN (15:15)
[2025-02-03 16:58] VITALS: BMI 40.2
[2025-02-03] MEDS: Magnesium 2 GM/50 ML(in water) 2 GM in Premix 1 BAG IVPB SCH (17:15)
[2025-02-03] MEDS: Potassium Chloride 20 MEQ TAB PO SCH (17:15)
[2025-02-03] MEDS: Furosemide 40 MG (4 mL) VIAL SLOW IVP SCH (17:15)
[2025-02-03] MEDS: Enoxaparin 100 MG (1 mL) SYRINGE SC SCH (22:55)
[2025-02-04 07:01] LABS: #Basophils 0.04 10x3/uL (0.0-0.2); %Basophils 0.6 % (0.0-1.0); %Eosinophils 3.8 % (0.0-10.0); %Lymphocytes 42.2 % (21.0-51.0); %Monocytes 10.8 % (0.0-10.0); %Neutrophils 42.3 % (42.0-75.0); Hematocrit 33.9 % (36.0-47.0); Hemoglobin 10.8 g/dL (12.0-16.0); Mean Corpuscular HGB CONC 31.9 g/dL (32.0-36.0); Mean Corpuscular Hemoglobin 31.5 pg (27.0-31.0); Mean Corpuscular Volume 98.8 fL (78.0-98.0); Mean Platelet Volume 9.9 fL (7.4-10.4); Platelet Count 223 10x3/uL (130-400); Red Blood Cell (RBC) Count 3.43 mill/uL (4.20-5.40)
[2025-02-04 07:28] LABS: Anion Gap 13 mmol/L (10-20); BUN (Urea Nitrogen) 8 mg/dL (9.8-20.1); Calc. Creatinine Clearance 126 mL/min (70-130); Calcium 8.5 mg/dL (7.8-10.44); Carbon Dioxide 29 mmol/L (23-31); Chloride 104 mmol/L (98-107); Estimated GFR 93; Glucose 84 mg/dL (83-110); Potassium 3.5 mmol/L (3.5-5.1); Sodium 142 mmol/L (136-145)
[2025-02-04] MEDS: Enoxaparin 100 MG (1 mL) SYRINGE SC SCH (07:44)
[2025-02-04] MEDS: Potassium Chloride 20 MEQ TAB PO SCH (08:58)
[2025-02-04] MEDS ORDERED: Methocarbamol 500 MG TAB PO PRN (10:35)
[2025-02-04] MEDS ORDERED: traMADol HCl 50 MG TAB PO PRN (10:35)
[2025-02-04] MEDS ORDERED: Nystatin Cream 15 GM TUBE TOP PRN (10:35)
[2025-02-04] MEDS: Furosemide 40 MG (4 mL) VIAL SLOW IVP SCH (11:56)
[2025-02-04] MEDS: CeleCOXIB 100 MG CAP PO SCH (20:23)
[2025-02-04] MEDS: Azelastine 137 MCG/NASAL Spray 30 ML NS SCH (20:23)
[2025-02-04] MEDS: Polyethylene Glycol 3350 17 GM Packet PO SCH (20:23)
[2025-02-04] MEDS: Acyclovir 400 mg Tablet PO SCH (20:24)
[2025-02-04] MEDS: Rosuvastatin 20 MG TAB PO SCH (20:24)
[2025-02-05 05:31] LABS: #Basophils 0.03 10x3/uL (0.0-0.2); %Basophils 0.5 % (0.0-1.0); %Eosinophils 8.2 % (0.0-10.0); %Lymphocytes 47.1 % (21.0-51.0); %Monocytes 9.4 % (0.0-10.0); %Neutrophils 34.5 % (42.0-75.0); Hematocrit 32.4 % (36.0-47.0); Hemoglobin 10.6 g/dL (12.0-16.0); Mean Corpuscular HGB CONC 32.7 g/dL (32.0-36.0); Mean Corpuscular Hemoglobin 32.3 pg (27.0-31.0); Mean Corpuscular Volume 98.8 fL (78.0-98.0); Mean Platelet Volume 9.9 fL (7.4-10.4); Platelet Count 224 10x3/uL (130-400); RBC Distribution Width 17.2 % (11.5-14.5); Red Blood Cell (RBC) Count 3.28 mill/uL (4.20-5.40)
[2025-02-05 05:52] LABS: Anion Gap 10 mmol/L (10-20); BUN (Urea Nitrogen) 10 mg/dL (9.8-20.1); Calc. Creatinine Clearance 126 mL/min (70-130); Calcium 8.4 mg/dL (7.8-10.44); Carbon Dioxide 30 mmol/L (23-31); Chloride 104 mmol/L (98-107); Estimated GFR 93; Glucose 94 mg/dL (83-110); Potassium 3.3 mmol/L (3.5-5.1); Sodium 141 mmol/L (136-145)
[2025-02-05] MEDS: Thiamine 100 MG TAB PO SCH (08:05)
[2025-02-05] MEDS: Hydrochlorothiazide 25 MG TAB PO SCH (08:05)
[2025-02-05] MEDS: Allopurinol 300 MG TAB PO SCH (08:05)
[2025-02-05] MEDS: Losartan 25 MG TAB PO SCH (08:05)
[2025-02-05] MEDS: Multivit, Therapeutic 1 TAB PO SCH (08:06)
[2025-02-05] MEDS: Potassium Chloride 20 MEQ TAB PO SCH (08:06)
[2025-02-05] MEDS: Levothyroxine Sodium 50 MCG TAB PO SCH (08:06)
[2025-02-05] MEDS: Aspirin 81 mg Enteric Coated Tablet PO SCH (08:06)
[2025-02-05] MEDS ORDERED: PILOCARPINE HCL EA EYE SCH (09:00)
[2025-02-05] MEDS: Apixaban 5 MG TAB PO SCH (21:07)
[2025-02-06 05:21] LABS: #Basophils 0.04 10x3/uL (0.0-0.2); %Basophils 0.7 % (0.0-1.0); %Eosinophils 8.1 % (0.0-10.0); %Lymphocytes 42.8 % (21.0-51.0); %Monocytes 8.8 % (0.0-10.0); %Neutrophils 39.2 % (42.0-75.0); Hematocrit 31.1 % (36.0-47.0); Hemoglobin 10.1 g/dL (12.0-16.0); Mean Corpuscular HGB CONC 32.5 g/dL (32.0-36.0); Mean Corpuscular Hemoglobin 32.3 pg (27.0-31.0); Mean Corpuscular Volume 99.4 fL (78.0-98.0); Mean Platelet Volume 9.9 fL (7.4-10.4); Platelet Count 192 10x3/uL (130-400); RBC Distribution Width 17.2 % (11.5-14.5); Red Blood Cell (RBC) Count 3.13 mill/uL (4.20-5.40)
[2025-02-06 05:50] LABS: Anion Gap 9 mmol/L (10-20); BUN (Urea Nitrogen) 10 mg/dL (9.8-20.1); Calc. Creatinine Clearance 124 mL/min (70-130); Calcium 8.3 mg/dL (7.8-10.44); Carbon Dioxide 30 mmol/L (23-31); Chloride 103 mmol/L (98-107); Estimated GFR 93; Glucose 92 mg/dL (83-110); Potassium 3.3 mmol/L (3.5-5.1); Sodium 139 mmol/L (136-145)
[2025-02-06] MEDS: Potassium Chloride 20 MEQ TAB PO SCH (09:29)
[2025-02-06 11:29] VITALS: TEMP 98.3
[2025-02-06 15:15] VITALS: BP 100/55
[2025-02-11] MEDS ORDERED: Apixaban 5 MG TAB PO SCH (21:00)
== END 2025-02-06 18:13 | DRG 299 ==
LOC: ERS 10:18 → 2NO 14:43
PROVIDERS: ADMIT Family Medicine; ATTEND Family Medicine
DX: I82.403 Acute embolism and thrombosis of unspecified deep veins of lower extremity, bilateral (principal); I26.99 Other pulmonary embolism without acute cor pulmonale; E03.9 Hypothyroidism, unspecified; E78.5 Hyperlipidemia, unspecified; I10 Essential (primary) hypertension; M19.90 Unspecified osteoarthritis, unspecified site; R82.71 Bacteriuria; Z98.890 Other specified postprocedural states; Z87.891 Personal history of nicotine dependence; Z79.899 Other long term (current) drug therapy; Z91.040 Latex allergy status; Z88.2 Allergy status to sulfonamides
CPT/HCPCS: 36415; 70450; 71260; 72125; 74177; 80048; 80053; 81001; 83690; 83735; 83880; 84484; 85025; 87077; 87086; 87186; 87428; 93005; 93306; 93970; 96372; 96374; J0696; J1650; J1940; J3475; Q9967